=== PATIENT | female | born 1935 | race Caucasian/White ===

== ENCOUNTER → 2018-03-31 | Outpatient (CLI) | payer MEDICARE, OTHER ==
[~2018-03-31] VITALS: Ht 160 cm; Wt 82.6 kg
[~2018-03-31] MED LIST: ASP325T PO; ASP81TEC PO; CALC-654 PO; CALC-656 PO; CATHETER FLUSH 10 ML SYR IV PRN; CLOP75TA PO; ENAL10TA PO; ENAL5TAB PO; ESCI5TAB PO; FENO160T12 PO; HCT25T PO; LOVA40TA2 PO; METO25TA PO; MTP25TSR PO; NIAC1TBM21 PO; NIAC1TBM27 PO; OMG1KC PO; PNT40TEC PO; PRAV80TA2 PO; REGADENOSON 0.4 MG/5 ML SYR (LEXISCAN) IV ONE; ROSU10TA12 PO
[2018-03-31 14:01] VITALS: BP 123/72
--- NOTE | 2018-04-01 08:06 | STRESS TEST ---
DATE OF SERVICE: 03/31/2018 LEXISCAN MYOVIEW STRESS TEST REPORT REFERRING PHYSICIAN: Cecilia Hudson MD. Baseline heart rate is 93. Baseline blood pressure is 116/94. Baseline EKG is atrial fibrillation with occasional PVCs. In summary, the patient was injected with 10.99 mCi of technetium-99 Myoview and the resting images were obtained. Then, the patient received 0.4 mg of Lexiscan followed by 31.2 mCi of technetium-99 Myoview. Throughout the test, there were no EKG changes. The resting and stress images were reviewed and compared in the short axis, horizontal long axis, and vertical long axis views. Review of the images showed breast attenuation affecting the quality of the images, there is mild decreased uptake at the inferoapical segment with subtle reversibility. No gross ischemia was noted. SSS is 4, SDS is 4, TID value 0.97. On the gated images, the left ventricle appeared to be normal size with normal contractility. Calculated ejection fraction is 71%. CONCLUSION: 1. The patient tolerated Lexiscan well. 2. Breast attenuation affecting the quality of the images with mild decreased uptake at the inferoapical segment with mild reversibility. No significant ischemia was noted. 3. Normal left ventricular size with normal contractility. Calculated ejection fraction is 71%. Job ID: [id number] DocumentID: [id number] Dictated Date: 04/01/2018 07:55:01 Contract Preparer Date: 04/01/2018 08:05:50 Dictated By: BRIT TOUSSAINT MD
== END ==
LOC: CARD 11:35
PROVIDERS: ATTEND Internal Medicine Cardiovascular Disease
DX: I25.10 Atherosclerotic heart disease of native coronary artery without angina pectoris (principal)
CPT/HCPCS: 78452; 93017

== ENCOUNTER → 2018-04-07 | Outpatient (CLI) | payer MEDICARE, OTHER ==
[~2018-04-07] MED LIST changes: -CATHETER FLUSH 10 ML SYR IV PRN; -REGADENOSON 0.4 MG/5 ML SYR (LEXISCAN) IV ONE
== END ==
LOC: CARD 12:04
PROVIDERS: ATTEND Internal Medicine Cardiovascular Disease
DX: I25.10 Atherosclerotic heart disease of native coronary artery without angina pectoris (principal); I10 Essential (primary) hypertension; E78.5 Hyperlipidemia, unspecified; R55 Syncope and collapse; I08.1 Rheumatic disorders of both mitral and tricuspid valves
CPT/HCPCS: 93306

== ENCOUNTER → 2019-07-28 | Outpatient (CLI) | payer MEDICARE, OTHER ==
[~2019-07-28] MED LIST changes: +APIX5TAB PO; +LISI-556 PO; +METO50TA7 PO; +MINE15DR4 OU; +VIT1CAPS5 PO
== END ==
LOC: CARD 14:00
PROVIDERS: ATTEND Internal Medicine Cardiovascular Disease
DX: I10 Essential (primary) hypertension (principal); I25.10 Atherosclerotic heart disease of native coronary artery without angina pectoris; E78.5 Hyperlipidemia, unspecified; R00.2 Palpitations; I34.0 Nonrheumatic mitral (valve) insufficiency
CPT/HCPCS: 93306

== ENCOUNTER → 2019-07-28 | Outpatient (CLI) | payer MEDICARE, OTHER ==
[~2019-07-28] MED LIST changes: -APIX5TAB PO; -LISI-556 PO; -METO50TA7 PO; -MINE15DR4 OU; -VIT1CAPS5 PO
== END ==
LOC: LAB 13:56
PROVIDERS: ATTEND Physician Assistant
DX: I25.10 Atherosclerotic heart disease of native coronary artery without angina pectoris (principal); I10 Essential (primary) hypertension; E78.2 Mixed hyperlipidemia

== ENCOUNTER → 2019-08-10 | Day surgery (SDC) | payer MEDICARE, OTHER ==
[~2019-08-10] VITALS: Ht 160 cm; Wt 88.9 kg
[2019-08-10] VITALS (9 sets, daily range): BP systolic 119–147; BP diastolic 64–87
[~2019-08-10] MED LIST changes: +APIX5TAB PO; +ENOXAPARIN 100 MG/1 ML (LOVENOX) SYR ONE; +ENOXAPARIN 80 MG/0.8 ML (LOVENOX) SYR SC ONE; +HURRICAINE EXT TUBE (BENZOCAINE) ONE; +HURRICAINE EXT TUBE (BENZOCAINE) XX ONE; +LIDOCAINE 2% VISCOUS 15 ML UDC ONE; +LIDOCAINE 2% VISCOUS 15 ML UDC PO ONE; +LISI-556 PO; +METO50TA7 PO; +MIDAZOLAM 5 MG/5 ML (VERSED) VIAL IV ONE; +MIDAZOLAM 5 MG/5 ML (VERSED) VIAL ONE; +MINE15DR4 OU; +NS IV 1000 ML 1,000 ML IV ONE; +NS IV 1000 ML 1,000 ML ONE; +VIT1CAPS5 PO; +fentaNYL INJECTION 100 MCG/2 ML AMP IV ONE; +fentaNYL INJECTION 100 MCG/2 ML AMP ONE; +proPOfol 200 MG/20 ML (DIPRIVAN) VIAL IV ONE
[2019-08-10 11:55] LABS: HEMOGLOBIN 13.3 G/DL (11.5-16.0); MEAN PLATELET VOLUME 10.5 FL (7.4-10.4); WHITE BLOOD COUNT 6.2 10^3/uL (4.3-11.0)
[2019-08-10 12:00] LABS: INR 1.1 (0.8-1.4); PROTHROMBIN TIME PATIENT 14.7 SEC (12.2-14.7)
--- NOTE | 2019-08-10 12:04 | NUR ---
SPOKE WITH THE PT (SHE HAD HER HOME MEDS AND A LIST WITH HER) TO COMPLETE THE MED REC. PT HAD EACH BOTTLES LABELED OF HOW TO TAKE EACH (AM VS PM) AND WAS ABLE TO VERIFY ALL THE DIRECTIONS. THE FOLLOWING FILL DATES ARE FROM [facility]: 06-24-2019 LISINOPRIL #90/90DS 07-04-2019 LOVASTATIN #90/90DS 07-05-2019 FENOFIBRATE #90/90DS 07-25-2019 METOPROLOL #90/90DS 07-25-2019 ELIQUIS #180/90DS OTC MEDS: PRESERVISION FISH OIL DRY EYE DROPS CALCIUM WITH VIT D PT SAYS SHE NO LONGER TAKES ASPIRIN Addendum: 08/10/19 at 1223 by LUCIEN VARGHESE [facility] PLEASE NOTE: ON 06-24-2019 HUMAN SENT OUT ON ORDER FOR PLAVIX #90, HOWEVER THE PT WAS SWITCHED TO ELIQUIS AND IS NO LONGER TAKING PLAVIX.
--- NOTE | 2019-08-10 12:06 | Diagnostic Imaging Report ---
EXAMINATION: Chest radiograph, portable AP view. DATE: 08/10/2019 11:30 AM. INDICATION: 84-year-old female, exam prior to transesophageal echocardiogram and cardioversion. COMPARISON: February 14, 2016. FINDINGS: Stable overall appearance of the cardiomediastinal silhouette. There is no identified pneumothorax. There is no large pleural effusion. There is no identified interval focal airspace consolidation. There are mildly prominent interstitial lung markings. This appearance is essentially unchanged since February 14, 2016. IMPRESSION: No identified acute cardiopulmonary abnormality. Dictated by: Dictated on workstation # [id number]
[2019-08-10 12:07] LABS: ALANINE AMINOTRANSFERASE 17 U/L (0-55); ALKALINE PHOSPHATASE 67 U/L (40-136); BILIRUBIN,TOTAL 0.6 MG/DL (0.1-1.0); BUN/CREATININE RATIO 21; CALCIUM 9.3 MG/DL (8.5-10.1); CARBON DIOXIDE 24 MMOL/L (21-32); CHLORIDE 107 MMOL/L (98-107); CHOLESTEROL 160 MG/DL (< 200); CREATININE SERUM 0.82 MG/DL (0.60-1.30); GFR ESTIMATED > 60; GLUCOSE 118 MG/DL (70-105); HDL CHOLESTEROL 54 MG/DL (40-60); POTASSIUM 4.3 MMOL/L (3.6-5.0); SODIUM 141 MMOL/L (135-145); TOTAL PROTEIN 7.1 GM/DL (6.4-8.2); TRIGLYCERIDES 86 MG/DL (<150); VLDL CHOLESTEROL 17 MG/DL (5-40)
--- NOTE | 2019-08-10 12:57 | Cardiac Procedure Note-CS/ASA ---
Pre-Procedure Note Pre-Op Procedure Note H&P Reviewed The H&P was reviewed, patient examined and no changes noted. Date H&P Reviewed: Aug 10, 2019 Time H&P Reviewed: 12:56 Conscious Sedation Pre-Proced Time 12:57 ASA Score 3 For ASA 3 and 4: Consider anesthesia and medical clearance. Also, for patients with a history of failed moderate sedation consider anesthesia. Airway Lungs Heart ASA score ASA 1: a normal healthy patient ASA 2: a patient with a mild systemic disease (mid diabetes, controlled hypertension, obesity x ASA 3: a patient with a severe systemic disease that limits activity (angina, COPD, prior Myocardial infarction) ASA 4: a patient with an incapacitating disease that is a constant threat to life (CHF, renal failure) ASA 5: a moribund patient not expected to survive 24 hrs. (ruptured aneurysm) ASA 6: a declared brain- patient whose organs are being harvested. For emergent operations, add the letter E after the classification Mallampati Classification Grade 3 Sedation Plan Analgesia, Amnesia, Plan communicated to team members, Discussed options with patient/fam, Discussed risks with patient/fam The patient is an appropriate candidate to undergo the planned procedure, sedation, and anesthesia. The patient immediately re-assessed prior to indication. BRIT TOUSSAINT MD Aug 10, 2019 12:57
--- NOTE | 2019-08-10 13:21 | Cardioversion ---
Cardioversion PROCEDURE PHYSICIAN: Brit Johnson DATE OF PROCEDURE: 08/10/19 DIRECT EXTERNAL ELECTRICAL CARDIOVERSION: Indications: Atrial Fibrillation Preoperative diagnoses: Atrial Fibrillation Postoperative diagnosis: Sinus rhythm, Successful Electrical Cardioversion Anesthesia: By Anesthesia services Complications: None Specimen: None Contrast: 0 Flouroscopy: none Procedure Details: The patient was brought the lab[address] road after informed consent was taken, all the risks and complications were explained including the risk of stroke. Electrical cardioversion was carried out with anesthesia support with propofol. 200 joules of synchronized shock was delivered through external patches which promptly r estored sinus rhythm. The patient tolerated the procedure well. Conclusions: Successful electrical cardioversion Final Diagnosis: Chronic atrial fibrillation Hypertension Palpitation BRIT JOHNSON MD Aug 10, 2019 13:21
--- NOTE | 2019-08-10 13:30 | Discharge Inst-Post CATH ---
Discharge Inst-CATH/EP Problems Reviewed?: Yes Post Cardiac Cath/EP D/C Inst Follow Up/Plan Appointment in Dr Johnson's office in 2-4 weeks <b>CARDIAC CATH/EP PROCEDURE DISCHARGE INSTRUCTIONS</b> ACTIVITY * Go Home directly and rest. * Limit activity of the leg (or wrist if it was used) for 7 days including aerobics, swimming, jogging, bicycling, etc. * Restrict stair-climbing for 7 days if possible, if not, climb up with your non-cath leg, then bring together on the same step. * Avoid lifting, pushing, pulling or excessive movement of the affected extremity for 7 days. * Customary sexual activity may be resumed after 2 days-use caution not to use a position that strains or causes pain to the affected extremity. * No driving for 24 hours. * NO SMOKING. * Avoid straining for bowel movements for 7 days. * Gentle walking on level ground is allowed. * Returning to work will depend on the type of procedure and the results. Your doctor will discuss this with you. CALL YOUR DOCTOR FOR ANY OF THE FOLLOWING: *If bleeding from the puncture site occurs- Apply gentle pressure to site with clean cloth and call your doctor or EMS. * If a knot or lump forms under the skin, increases in size, or causes pain. * If bruising appears to be worsening or moving further down your leg instead of disappearing. * Temperature above 101 F. CARE OF YOUR GROIN INCISION; * Bruising or purple discoloration of the skin near the puncture site is common. * You may shower only, no bathtub bathing for 5 days. Be careful to avoid slipping as your leg may feel stiff. * If a closure device was used on your femoral artery, please see the attached guide regarding care of the device and your leg. * Leave dressing on FOR 24 hours. CARE OF YOUR WRIST INCISION; * Bruising or purple discoloration of the skin near the puncture site is common. * You may shower. * DO NOT submerge wrist. * Leave dressing on FOR 24 hours. BRIT JOHNSON MD Aug 10, 2019 13:29
--- NOTE | 2019-08-10 13:47 | NUR ---
50MG PROPOFOL IV GIVEN BY ANESTHESIA FERNANDEZ AYALA. SEE ANESTHESIA RECORD FOR DETAILS.
--- NOTE | 2019-08-10 14:07 | Anesthesia-General Post-Op ---
MAC Patient Condition Mental Status/LOC: Same as Preop Cardiovascular: Satisfactory Nausea/Vomiting: Absent Respiratory: Satisfactory Pain: Controlled Complications: Absent Post Op Complications Complications None Follow Up Care/Instructions Patient Instructions None needed. Anesthesiology Discharge Order Discharge Order Patient is doing well, no complaints, stable vital signs, no apparent adverse anesthesia problems. No complications reported per nursing. DIONY GARAY CRNA Aug 10, 2019 14:07
== END ==
LOC: CATH 10:52
PROVIDERS: ATTEND Internal Medicine Cardiovascular Disease
DX: I48.20 Chronic atrial fibrillation, unspecified (principal); I48.0 Paroxysmal atrial fibrillation; I25.10 Atherosclerotic heart disease of native coronary artery without angina pectoris; I10 Essential (primary) hypertension; I65.29 Occlusion and stenosis of unspecified carotid artery; I27.20 Pulmonary hypertension, unspecified; E78.5 Hyperlipidemia, unspecified; Z88.8 Allergy status to other drugs, medicaments and biological substances; Z86.73 Personal history of transient ischemic attack (TIA), and cerebral infarction without residual deficits; Z79.01 Long term (current) use of anticoagulants; Z79.899 Other long term (current) drug therapy; Z82.49 Family history of ischemic heart disease and other diseases of the circulatory system
CPT/HCPCS: 36415; 71045; 80053; 80061; 85027; 85610; 85730; 87081; 92960; 93005; 93312; 93320; 93325

== ENCOUNTER → 2021-04-08 | Outpatient (CLI) | payer MEDICARE, OTHER ==
[~2021-04-08] MED LIST changes: +CATHETER FLUSH 10 ML SYR IV PRN; -ENOXAPARIN 100 MG/1 ML (LOVENOX) SYR ONE; -ENOXAPARIN 80 MG/0.8 ML (LOVENOX) SYR SC ONE; -HURRICAINE EXT TUBE (BENZOCAINE) ONE; -HURRICAINE EXT TUBE (BENZOCAINE) XX ONE; -LIDOCAINE 2% VISCOUS 15 ML UDC ONE; -LIDOCAINE 2% VISCOUS 15 ML UDC PO ONE; -LISI-556 PO; +LISI-729 PO; -MIDAZOLAM 5 MG/5 ML (VERSED) VIAL IV ONE; -MIDAZOLAM 5 MG/5 ML (VERSED) VIAL ONE; -NS IV 1000 ML 1,000 ML IV ONE; -NS IV 1000 ML 1,000 ML ONE; +REGADENOSON 0.4 MG/5 ML SYR (LEXISCAN) IV ONE; -fentaNYL INJECTION 100 MCG/2 ML AMP IV ONE; -fentaNYL INJECTION 100 MCG/2 ML AMP ONE; -proPOfol 200 MG/20 ML (DIPRIVAN) VIAL IV ONE
[2021-04-08 09:08] VITALS: BP 155/92
--- NOTE | 2021-04-08 11:19 | Cardiology Stress Test Report ---
Stress Test Report Date of Procedure/Referring: Date of Procedure: Apr 08, 2021 Violet López Admitting Physician Cecilia Hudson MD Indications: CAD Baseline Heart Rate: 76 Baseline Blood Pressure: Blood Pressure Systolic: 155 Blood Pressure Diastolic: 92 Baseline Vitals Vital Signs Date Time Temp Pulse Resp B/P (MAP) Pulse Ox O2 Delivery O2 Flow Rate FiO2 04/08/21 09:08 76 155/92 (113) 97 Baseline EKG: Baseline EKG: A Fib Summary After explaining the procedure to the patient, she signed a consent and then brought to the stress nuclear laboratory. Patient received 0.4 mg Lexiscan for stress test, ECG, heart rate and blood pressure were monitored continuously. Resting and stress dose of radio tracer were injected, imaging was acquired and reviewed in short axis, horizontal long axis and vertical long axis views. TID: 1.14 SSS: 6 SDS: 4 EF: 60 1. Patient tolerated Lexiscan well 2. Baseline atrial fibrillation persisted during test 3. Breast attenuation affecting the quality of the images with mild decrease uptake involving the anteroapical and apical segment of the anterolateral wall with mild reversibility 4. Normal left ventricular size, EF 60%, gated images are unreliable due to underlying atrial fibrillation BRIT TOUSSAINT MD Apr 08, 2021 11:19
== END ==
LOC: CARD 07:45
PROVIDERS: ATTEND Physician Assistant
DX: I25.10 Atherosclerotic heart disease of native coronary artery without angina pectoris (principal); I10 Essential (primary) hypertension
CPT/HCPCS: 78452; 93017; A9502

== ENCOUNTER 2021-04-17 10:00 | Day surgery (SDC) | payer MEDICARE, OTHER ==
[2021-04-17] VITALS (11 sets, daily range): BP systolic 116–160; BP diastolic 75–103
[~2021-04-17] VITALS: Ht 160 cm; Wt 89.0 kg
[2021-04-17 08:11] LABS: HEMATOCRIT 44 % (35-52); MEAN CORPUSCULAR HEMOGLOBIN 33 pg (25-34); MEAN CORPUSCULAR HGB CONC 32 g/dL (32-36); MEAN CORPUSCULAR VOLUME 104 fL (80-99); MEAN PLATELET VOLUME 10.4 fL (9.0-12.2); PLATELET COUNT 236 10^3/uL (130-400)
--- NOTE | 2021-04-17 08:23 | Diagnostic Imaging Report ---
EXAMINATION: Chest 1 view HISTORY: CAD COMPARISON: 08/10/2019 FINDINGS: Heart size and pulmonary vasculature are normal. The lungs are clear without consolidation, pleural effusion, or pneumothorax. The osseous structures are intact. IMPRESSION: 1. No acute radiographic abnormality in the chest. Dictated by: Dictated on workstation # [id number]
[2021-04-17 08:33] LABS: BILIRUBIN,TOTAL 0.7 MG/DL (0.1-1.0); CALCIUM 9.6 MG/DL (8.5-10.1); CREATININE SERUM 0.92 MG/DL (0.60-1.30); TOTAL PROTEIN 7.4 GM/DL (6.4-8.2)
[2021-04-17 08:37] LABS: INR 1.1 (0.8-1.4); PROTHROMBIN TIME PATIENT 14.5 SEC (12.2-14.7)
--- NOTE | 2021-04-17 09:45 | Conscious Sedation/ASA ---
Conscious Sedation Pre-Proced Time 09:45 ASA Score 3 For ASA 3 and 4: Consider anesthesia and medical clearance. Also, for patients with a history of failed moderate sedation consider anesthesia. Airway Lungs Heart ASA score ASA 1: a normal healthy patient ASA 2: a patient with a mild systemic disease (mid diabetes, controlled hypertension, obesity x ASA 3: a patient with a severe systemic disease that limits activity (angina, COPD, prior Myocardial infarction) ASA 4: a patient with an incapacitating disease that is a constant threat to life (CHF, renal failure) ASA 5: a moribund patient not expected to survive 24 hrs. (ruptured aneurysm) ASA 6: a declared brain- patient whose organs are being harvested. For emergent operations, add the letter E after the classification Mallampati Classification Grade 3 Sedation Plan Analgesia, Amnesia, Plan communicated to team members, Discussed options with patient/fam, Discussed risks with patient/fam The patient is an appropriate candidate to undergo the planned procedure, sedation, and anesthesia. The patient immediately re-assessed prior to indication. BRIT TOUSSAINT MD Apr 17, 2021 09:45
[~2021-04-17 10:00] MED LIST changes: -CATHETER FLUSH 10 ML SYR IV PRN; +HEParin (CATH LAB) 2,000 ML IV ONE; +LIDOCAINE 1% INJ 20 ML 20 ML VIAL ONE; +LISI10TA25 PO; +NS IV 1000 ML 1,000 ML IV SCH; +NS IV 1000 ML 1,000 ML ONE; -REGADENOSON 0.4 MG/5 ML SYR (LEXISCAN) IV ONE
[2021-04-17] MEDS ORDERED: methylPREDNISolone 125 MG (Solu-MEDROL) VIAL ONE (10:43)
[2021-04-17] MEDS ORDERED: fentaNYL INJ 100 MCG/2 ML AMP ONE (10:43)
[2021-04-17] MEDS ORDERED: diphenhydrAMINE 50 MG/ML INJ (BENADRYL) ONE (10:43)
[2021-04-17] MEDS ORDERED: MIDAZOLAM 5 MG/5 ML (VERSED) VIAL ONE (10:43)
[2021-04-17] MEDS ORDERED: HEParin 1000 UNIT/ML (10ML VIAL) FOR BOLUS ONE (10:54)
[2021-04-17] MEDS ORDERED: VERAPAMIL 5 MG/2 ML (CALAN) VIAL IV ONE (10:54)
[2021-04-17] MEDS ORDERED: NITRO DRIP 25000 MCG/D5W 250 ML IV ONE (10:54)
[2021-04-17] MEDS ORDERED: ASPIRIN 325 MG (5 GR) TABLET ONE (11:54)
[2021-04-17] MEDS ORDERED: CLOPIDOGREL 300 MG (PLAVIX) TABLET PO ONE (11:54)
[2021-04-17] MEDS ORDERED: PATIENT MAY USE OWN MEDS, ALL PO SCH (12:00)
--- NOTE | 2021-04-17 12:03 | Cardiac Cath Report ---
Cardiac Cath Report Physician (s)/Nursing Manager (s) Physician BRIT TOUSSAINT MD Pre-Procedure Diagnosis Pre-Procedure Diagnosis: Coronary artery disease Post-Procedure Note Procedure Start Date: Apr 17, 2021 Name of Procedure: Left heart catheterization Stent to the LAD Findings/Procedure Note PROCEDURE NOTE: 86-year-old lady with history of coronary artery disease, hypertension hyperlipidemia, had an abnormal stress test. Scheduled for cardiac catheter ization possible PTCA. After explaining the procedure to the patient, all pros and cons were explained, all questions were answered. The patient signed the consent and then she was placed on the cardiac catheterization laboratory. Groin was prepped SL fashion local anesthesia was used. Initially sheath was placed in the right radial artery, the subclavian artery was significantly tortuous I was unable to torque the catheter after reaching the aortic cusps subsequently I decided to abort and proceed from the groin. Sheath placed in the right femoral artery. Edouard right and left catheter were used to access the coronary system. Pigtail was used to access the left ventricular cavity. Left ventriculogram was not done, pressure was measured Patient was given 5000 units of heparin, EBU 3.5 guide was advanced to the left coronary system, BMW wire was advanced through the LAD and parked distally, has severe stenosis at the distal LAD primary stenting using Supera 2.5 x 12 mm expanded to 2.71 mm with excellent results. At the end of the procedure the sheath was removed. Closure device was deployed FINDINGS: Hemodynamics LV 146/12, end-diastolic pressure of 12 Aorta 153/69 mean of 84 ANATOMY: Left Main is free of obstructive disease Left Anterior Descending is slightly tortuous with severe stenosis distally, primary stenting using Supera 2.5 x 12 mm deployed under 12 deisi up to 2.71 mm with excellent results, mid LAD has mild to moderate stenosis Left Circumflex is moderate in size with mild disease nonobstructive disease Right Coronary Artery has patent stent, mid right coronary artery has moderate stenosis nonobstructive disease LV Gram was not done, pressure was measured CONCLUSION: 1. Severe distal LAD stenosis successful primary stenting using Supera 2.5 x 12 mm expanded to 2.71 mm with excellent results, the mid LAD has mild to moderate stenosis nonobstructive disease. 2. Patent stent in the right coronary artery with mild to moderate stenosis in the mid right coronary artery nonobstructive disease 3. Normal left ventricular end-diastolic pressure DISCUSSION AND RECOMMENDATION: Patient was started on aspirin and Plavix in addition to the Eliquis, planning to stop aspirin after 6 weeks and continue on Plavix and Eliquis Anesthesia Type: Conscious Sedation Estimated blood loss (mL): 25 ml Contrast Amount: 64 ml Total Radiation Dose: 721 mGy Post-Procedure Diagnosis Post-operative diagnosis: Chest pain Coronary artery disease Hypertension Hyperlipidemia BRIT TOUSSAINT MD Apr 17, 2021 12:03
[2021-04-17] MEDS: NS IV 1000 ML 1,000 ML IV SCH ×2 (13:10→22:52)
[2021-04-17] MEDS: APIXABAN 5 MG (ELIQUIS) TABLET PO SCH (19:43)
[2021-04-17] MEDS ORDERED: NON-FORMULARY MEDICATION 1 EA EA (Lovastatin 40 MG) PO SCH (21:00)
[2021-04-17] MEDS ORDERED: LOVASTATIN 40 MG PO SCH (21:00)
[2021-04-17] MEDS ORDERED: SIMvastatin 20 MG (ZOCOR) TAB PO SCH (21:00)
[2021-04-18 04:00] VITALS: BP 135/83
[2021-04-18 05:26] LABS: HEMATOCRIT 40 % (35-52); MEAN CORPUSCULAR HEMOGLOBIN 33 pg (25-34); MEAN CORPUSCULAR HGB CONC 33 g/dL (32-36); MEAN CORPUSCULAR VOLUME 101 fL (80-99); MEAN PLATELET VOLUME 10.6 fL (9.0-12.2); PLATELET COUNT 235 10^3/uL (130-400)
[2021-04-18 05:45] LABS: POTASSIUM 4.3 MMOL/L (3.6-5.0)
[2021-04-18 05:47] LABS: CALCIUM 9.3 MG/DL (8.5-10.1)
[2021-04-18] MEDS ORDERED: ASPI-1238 PO (05:48)
[2021-04-18] MEDS ORDERED: PANT40SU PO (05:48)
[2021-04-18] MEDS ORDERED: CLOP75TA28 PO (05:48)
--- NOTE | 2021-04-18 05:49 | Discharge Inst-Post CATH ---
Discharge Inst-CATH/EP Problems Reviewed?: Yes Post Cardiac Cath/EP D/C Inst Follow Up/Plan Appointment with Dr Johnsno in 2-4 weeks <b>CARDIAC CATH/EP PROCEDURE DISCHARGE INSTRUCTIONS</b> ACTIVITY * Go Home directly and rest. * Limit activity of the leg (or wrist if it was used) for 7 days including aerobics, swimming, jogging, bicycling, etc. * Restrict stair-climbing for 7 days if possible, if not, climb up with your non-cath leg, then bring together on the same step. * Avoid lifting, pushing, pulling or excessive movement of the affected extremity for 7 days. * Customary sexual activity may be resumed after 2 days-use caution not to use a position that strains or causes pain to the affected extremity. * No driving for 24 hours. * NO SMOKING. * Avoid straining for bowel movements for 7 days. * Gentle walking on level ground is allowed. * Returning to work will depend on the type of procedure and the results. Your doctor will discuss this with you. CALL YOUR DOCTOR FOR ANY OF THE FOLLOWING: *If bleeding from the puncture site occurs- Apply gentle pressure to site with clean cloth and call your doctor or EMS. * If a knot or lump forms under the skin, increases in size, or causes pain. * If bruising appears to be worsening or moving further down your leg instead of disappearing. * Temperature above 101 F. CARE OF YOUR GROIN INCISION; * Bruising or purple discoloration of the skin near the puncture site is common. * You may shower only, no bathtub bathing for 5 days. Be careful to avoid slipping as your leg may feel stiff. * If a closure device was used on your femoral artery, please see the attached guide regarding care of the device and your leg. * Leave dressing on FOR 24 hours. CARE OF YOUR WRIST INCISION; * Bruising or purple discoloration of the skin near the puncture site is common. * You may shower. * DO NOT submerge wrist. * Leave dressing on FOR 24 hours. BRIT JOHNSON MD Apr 18, 2021 05:48
[2021-04-18 05:51] LABS: CREATININE SERUM 0.83 MG/DL (0.60-1.30)
[2021-04-18 08:00] VITALS: BP 145/83
[2021-04-18] MEDS: NS IV 1000 ML 1,000 ML IV SCH (08:00)
[2021-04-18] MEDS: APIXABAN 5 MG (ELIQUIS) TABLET PO SCH (08:13)
--- NOTE | 2021-04-18 08:35 | Cardiology Progress Note ---
Subjective Date Seen by Provider: Apr 18, 2021 Time Seen by Provider: 08:34 Subjective/Events-last exam Patient was seen and evaluated, sitting in a chair, comfortable, no new complaint, groin is healed well Review of Systems General: No Chills, No Night Sweats, No Fatigue, No Malaise, No Appetite, No Other HEENT: No Head Aches, No Visual Changes, No Eye Pain, No Ear Pain, No Dysphasia, No Sinus Congestion, No Post Nasal Drip, No Sore Throat, No Other Pulmonary: No Dyspnea, No Cough, No Pleuritic Chest Pain, No Other Cardiovascular: No: Chest Pain, Palpitations, Orthopnea, Paroxysmal Noc. Dyspnea, Edema, Lt Headedness, Other Objective-Cardiology Exam Last Set of Vital Signs Vital Signs 04/18/21 08:00 Temp 36.4 Pulse 91 Resp 14 B/P (MAP) 145/83 (103) Pulse Ox 95 O2 Delivery Room Air I&O Intake and Output 04/18/21 00:00 Intake Total 300 ml Output Total 0 ml Balance 300 ml Intake Oral 300 ml Output Urine Total 0 ml # Voids 3 General: Alert, Oriented X3, Cooperative HEENT: Atraumatic, PERRLA Neck: Supple, No JVD, No Thyromegaly Lungs: Clear to Auscultation, Normal Air Movement Heart: Normal S1, Normal S2, No Murmurs, Other (Atrial fibrillation) Abdomen: Normal Bowel Sounds, Soft, No Tenderness, No Hepatosplenomegaly, No Masses Extremities: No Clubbing, No Cyanosis, No Edema, Normal Pulses, No Tend erness/Swelling Skin: No Rashes, No Breakdown, No Significant Lesion Neuro: Normal Gait, Normal Speech, Strength at 5/5 X4 Ext, Normal Tone, Sensation Intact Psych/Mental Status: Mental Status NL, Mood NL Results Lab Laboratory Tests 04/18/21 04:55 A/P-Cardiology Admission Diagnosis Coronary artery disease Paroxysmal atrial fibrillation Hypertension Hyperlipidemia Assessment/Plan Coronary artery disease, status post stenting to the LAD with excellent results. Patient will need to be on aspirin, Plavix and apixaban for now, planning to s top aspirin in the future. Paroxysmal atrial fibrillation, borderline tachycardia, restarting home medication. Hypertension, restart home medication monitor blood pressure Hyperlipidemia BRIT TOUSSAINT MD Apr 18, 2021 08:35
[2021-04-18] MEDS ORDERED: FENOFIBRATE 134 MG (LOFIBRA) CAPSULE PO SCH (09:00)
[2021-04-18] MEDS ORDERED: ASPIRIN E.C. 81 MG (ECOTRIN) TAB PO SCH (09:00)
[2021-04-18] MEDS ORDERED: NON-FORMULARY MEDICATION 1 EA EA (Fenofibrate 160 MG) PO SCH (09:00)
[2021-04-18] MEDS ORDERED: FENOFIBRATE 160 MG TAB PO SCH (09:00)
[2021-04-18] MEDS ORDERED: CLOPIDOGREL 75 MG (PLAVIX) TABLET PO SCH (09:00)
[2021-04-18] MEDS ORDERED: lisINopril 10 MG (PRINIVIL) TABLET PO SCH (09:00)
[2021-04-18] MEDS ORDERED: meTOproloL SUCCINATE 50 MG (TOPROL XL) TAB PO SCH (09:00)
== END 2021-04-18 10:59 | disposition home or self-care (01) ==
LOC: CSD 12:22 → CATH 04-18 10:59
PROVIDERS: ATTEND Internal Medicine Cardiovascular Disease
DX: I25.10 Atherosclerotic heart disease of native coronary artery without angina pectoris (principal); E78.2 Mixed hyperlipidemia; I27.20 Pulmonary hypertension, unspecified; I10 Essential (primary) hypertension; F41.9 Anxiety disorder, unspecified; F32.A Depression, unspecified; I65.23 Occlusion and stenosis of bilateral carotid arteries; I48.0 Paroxysmal atrial fibrillation; Z95.5 Presence of coronary angioplasty implant and graft; Z86.73 Personal history of transient ischemic attack (TIA), and cerebral infarction without residual deficits; Z79.899 Other long term (current) drug therapy; Z79.01 Long term (current) use of anticoagulants
CPT/HCPCS: 71045; 80048; 80053; 80061; 85027 ×2; 85610; 85730; 87081; 93005; 93458; C1769 ×2; C1874; C1887; C1894 ×2; C9600; 36415